=== PATIENT | female | born 1960 ===

== ENCOUNTER 2024-10-13 16:16 | Outpatient (AMB) | payer MEDICAID, SELFPAY ==
--- OUTSIDE RECORDS SUMMARY | 2024-10-13 16:18 | XMS_ITS | Clinical Summary ---
Author Organization [facility] Address [address] [place] [address] Care Team Providers Care Anode Crew Supervisor Name Role Phone Dinah Parrish TRAVEL WRITER Primary Care Provider Family History Medical History Relation Name Comments Cancer Father LUNG/SMOKER Breast cancer Neg Hx Relation Name Status Comments Father LUNG/SMOKER Social History Tobacco Use Types Packs/Day Years Used Date Smoking Tobacco: Never Assessed Comments Unknown Sex and Gender Information Value Date Recorded Sex Assigned at Not on file Legal Sex Female 3:47 AM EST Gender Identity Not on file Sexual Orientation Not on file Obstetrics History Plan of Treatment Health Maintenance Due Date Last Done Comments DTaP,Tdap,and Td Vaccines (1 - Tdap) 1977 Cervical Cancer Screening: P ap Smear 11/30/1979 Pneumococcal Vaccine: 50+ Years (1 of 1 - PCV) 2008 Zoster Vaccines (1 of 2) 2008 Breast Cancer Screening 06/15/2021 06/15/19 20, 05/07/2018 COVID-19 Vaccine ( - 2023-2 5 season) 2024 Influenza Vaccine (Season Ended) 2025 RSV Immunization Adult Patients (1 - 1-dose 75+ series) 2033 HIB Vaccines Aged Out No longer eligi ble based on patient's age to complete this topic HPV Vaccines Aged Out No longer eligi ble based on patient's age to complete this topic Hepatitis A Vaccines Aged Out No long er eligible based on patient's age to complete this topic Hepatitis B Vaccines Aged Out No long er eligible based on patient's age to complete this topic IPV Vaccines Aged Out No longer eligi ble based on patient's age to complete this topic MMR Vaccines Aged Out No longer eligi ble based on patient's age to complete this topic Meningococcal ACWY Vaccine Aged Out N o longer eligible based on patient's age to complete this topic Meningococcal B Vaccine Aged Out No l onger eligible based on patient's age to complete this topic Pneumococcal Vaccine: Pediatrics (0 to 5 Years) and At-Risk Patients (6 to 64 Years) Aged Out No longer eligible b ased on patient's age to complete this topic RSV Immunization Patients Under 20 months Aged Out No longer eligible b ased on patient's age to complete this topic Varicella Vaccines Aged Out No longer eligible based on patient's age to complete this topic Procedures Procedure Name Priority Date/Time Associated Diagnosis Comments MAMMOGRAM SCREENING BILATERAL 3D LACY WITH CAD Routine 06/15/2019 4:20 PM EST Encounter for screening mammogram for malignant neoplasm of breast from Last 3 Months or Most Recently Relevant to Health Maintenance Results * MAMMOGRAM SCREENING BILATERAL 3D LACY WITH CAD (06/15/2019 4:20 PM EST) Anatomical Region Laterality Modality Mammography 06/13/2019 3:38 PM EST Narrative 06/16/2019 7:46 AM EST This is a summary report. The complete report is available in the patient's medical record. If you cannot access the medical record, please contact the sending organization for a detailed fax or copy. EXAM PERFORMED: ??MAMMOGRAM SCREENING BILATERAL 3D LACY WITH CAD EXAM HISTORY: Screening COMPARISON: 05/07/2018 TECHNIQUE: Bilateral full field digital mammography synthesized (2-D) and Tomosynthesis (3-D) was performed using standard CC and MLO projections. FINDINGS: There are no dominant mass lesions, skin thickening, or nipple retraction. No cluster of suspicious microcalcifications is seen. BREAST DENSITY: ??Scattered fibroglandular densities within the breast parenchyma (25-50% fibroglandular tissue: density B). ?? IMPRESSION: 1. ??No radiographic evidence of malignancy. Followup is recommended in one year. The results of this examination have been communicated to the patient through a lay letter in accordance with the Mammography Quality Standards Act. BI-RADS 2: Benign. Session: Examination and interpretation performed during a separate session. 3342 F Report reviewed and signed by : Dr. Eugene Sweet MD on 06/16/2019 7:46 AM. Workstation Name - [id number] Procedure Note Eugene Sweet MD - 05/25/2022 This is a summary report. The complete report is available in thepatient's medical record. If you cannot access the medical record, pleasecontact the sending organization for a detailed fax or copy. EXAM PERFORMED: MAMMOGRAM SCREENING BILATERAL 3D LACY WITH CAD EXAM HISTORY: Screening COMPARISON: 05/07/2018 TECHNIQUE: Bilateral full field digital mammography synthesized (2-D) andTomosynthesis (3-D) was performed using standard CC and MLO projections. FINDINGS: There are no dominant mass lesions, skin thickening, or nipple retraction.No cluster of suspicious microcalcifications is seen. BREAST DENSITY: Scattered fibroglandular densities within the breastparenchyma (25-50% fibroglandular tissue: density B). IMPRESSION: 1. No radiographic evidence of malignancy. Followup is recommended in oneyear. The results of this examination have been communicated to the patientthrough a lay letter in accordance with the Mammography Quality StandardsAct. BI-RADS 2: Benign. Session: Examination and interpretation performed during a separatesession. 3342 F Report reviewed and signed by : Dr. Eugene Sweet MD on 06/16/2019 7:46AM. Workstation Name - [id number] Dinah Parrish NP IMG BI PROCEDURES Final Res ult from Last 3 Months or Most Recently Relevant to Health Maintenance Care Teams Anode Crew Supervisor Relationship Specialty Start Date End Date Dinah Parrish NP [address] [address] PCP - General Internal Medicine 06/15/19
--- OUTSIDE RECORDS SUMMARY | 2024-10-13 16:18 | XMS_ITS | Clinical Summary ---
Author Organization [facility] Address [address] [place] [address] Care Team Providers Care Purchasing Agent Name Role Phone Provider, Octavio LOREDO Primary Care Provider Un available Social History Tobacco Use Types Packs/Day Years Used Date Smoking Tobacco: Never Assessed Comments Unknown Sex and Gender Information Value Date Recorded Sex Assigned at Not on file Legal Sex Female 5:25 PM EDT Gender Identity Not on file Sexual Orientation Not on file Plan of Treatment Health Maintenance Due Date Last Done Comments Hepatitis C Virus Screening 1958 HIV Screening 11/30/1971 DTaP/Tdap/Td Vaccines (1 - Tdap) 1977 Pneumococcal Vaccines 50+ (1 of 1 - PCV) 2008 Zoster (Shingles) Vaccine (1 of 2) 2008 COVID-19 Vaccine ( - 2023-2 5 season) 2024 RSV Vaccine 60 years and old er and Patients (1 - 1-dose 75+ series) 2033 Hepatitis B Vaccines Aged Out No long er eligible based on patient's age to complete this topic Care Teams Purchasing Agent Relationship Specialty Start Date End Date ProviderOctavio MD PCP - General 02/22/11
--- OUTSIDE RECORDS SUMMARY | 2024-10-13 16:18 | XMS_ITS | Clinical Summary ---
Author Organization [facility] Address [address] [place] [address] Care Team Providers Care Rack Puller Name Role Phone ParrishDinah pruitt Sdea TOLBERT Primary Care Provider [phone] Allergies Active Allergy Reactions Criticality Noted Date Comments Pravastatin Medium 10/28/2013 Other reaction(s): muscle pain Medications Medication Sig Dispensed Refills Start Date End Date Status rosuvastatin (CRESTOR) tablet 5 mg Take 10 mg by mouth every other day. 0 05/30/2019 Active Psyllium (HM FIBER) 28.3 % POWD Take by mouth. 0 02/16/2019 Active Multiple Vitamin (MULTIVITAMIN) tablet Take 2 tablets by mouth. 0 Active levothyroxine (SYNTHROID, LEVOXYL) tablet 50 mcg TAKE 1 TABLET (50MCG TOTAL) BY MOUTH DAILY BEFORE BREAKFAST 0 05/09/2019 Active Diclofenac Sodium 1 % GEL topical Apply 2 g topically. 0 08/04/2018 A ctive NASCOBAL 500 MCG/0.1ML SOLN ADMINISTER 1 SPRAY INTO AFFECTED NOSTRIL ONCE PER WEEK. 0 01/05/2020 Active calcium carbonate (OS-MARIELLE) 1250 (500 Ca) MG chewable tablet Chew 2 tablets by mouth. 0 Active atenolol (TENORMIN) tablet 25 mg TAKE 1/2 TABLET DAILY 0 08/15/2019 Active aspirin EC 81 MG tablet Take by mouth. 0 07/14/2014 Active Family History Medical History Relation Name Comments Cancer Father LUNG/SMOKER Breast cancer Neg Hx Relation Name Status Comments Father LUNG/SMOKER Social History Tobacco Use Types Packs/Day Years Used Date Smoking Tobacco: Never Assessed Sex and Gender Information Value Date Recorded Sex Assigned at Female 01/19/2020 5:16 AM EDT Gender Identity Not on file Sexual Orientation Not on file Last Filed Vital Signs Vital Sign Reading Time Taken Comments Blood Pressure 109/73 01/19/2020 3:32 AM EDT Pulse 63 01/19/2020 3:32 AM EDT Temperature 36.7 ??C (98 ??F) 01/19/2020 3:32 AM EDT Respiratory Rate 16 01/19/2020 3:32 AM EDT Oxygen Saturation 95% 01/19/2020 3:32 AM EDT Inhaled Oxygen Concentration - - Weight - - Height - - Body Mass Index - - Plan of Treatment Health Maintenance Due Date Last Done Comments Hepatitis C Screening 1958 COVID-19 Vaccine (#1) 06/01/1959 Depression Screening 1970 Preventative Health Evaluation 1976 DTap / Tdap / Td (1 - Tdap) 1977 Cervical Cancer Screening (Pap Smear) 11/30/1979 Colon Cancer Screening (Colonoscopy) 11/30/2003 Shingrix-Zoster Vaccine (1 of 2) 2008 Breast Cancer Screening (Mammogram) 06/15/2021 06/15/2019, 05/07/2018, 03/18/2017, Additional history exists Fall Risk Assessment 11/30/2023 Osteoporosis Screening (DEXA Scan) 11/30/2023 05/18/2018 Pneumococcal Vaccine (1 of 1 - PCV) 11/30/2023 Influenza Vaccine (#1) 2024 RSV Adult > 60+ Yrs or (1 - 1-dose 75+ series) 2033 Hepatitis B Vaccines Aged Out No long er eligible based on patient's age to complete this topic Pneumococcal Vaccine Aged Out No long er eligible based on patient's age to complete this topic RSV Ped < 20 months Aged Out No longe r eligible based on patient's age to complete this topic Care Teams Rack Puller Relationship Specialty Start Date End Date Dinah Parrish APRN [address] [place] [address] PCP - General Internal Medicine 06/15/19
--- OUTSIDE RECORDS SUMMARY | 2024-10-13 16:18 | XMS_ITS | Clinical Summary ---
Author Organization [facility] Address [address] [place] [address] Care Team Providers Care Logistic Specialist Name Role Phone ParrishDinah pruitt TOMASZ Primary Care Provider [phone] Allergies Active Allergy Reactions Criticality Noted Date Comments Pravastatin Medium 10/28/2013 Other reaction(s): muscle pain Medications aspirin 81 mg EC tablet Take by mouth every 12 hours. 5 Active calcium carbonate (OS-MARIELLE) 500 mg calcium (1,250 mg) chewable tablet Take 2 tablets by mouth daily. Active omega-3 fatty acids (FISH OIL) 500 mg capsule Take by mouth. 4 Active multivitamin (multivitamin) tablet Take 2 tablets by mouth daily. Active diclofenac sodium (VOLTAREN) 1 % gelIndications:Lum barometers calibrator pain,Strain of lumbar paraspinous muscle, sequela Apply 2 g topically 4 (four) times a day. 300 g 3 9 Active psyllium husk, with sugar, (FIBER, PSYLLIUM HUSK/SUGAR,) 3.4 gram/12 gram powderIndications: Generalized abdominal pain,LLQ pain,Constipation, unspecified constipation type Take 1 Dose by mouth 2 (two) times a day. 862 Bottle 1 9 Active cholecalciferol, vitamin D3, 2,000 unit tablet TAKE 1 TABET BY MOUTH DAILY(2000 UNITS) 200 tablet 9 Active rosuvastatin (CRESTOR) 5 mg tabletIndications: Mixed hyperlipidemia Take 2 tablets (10 mg total) by mouth every other day. 200 tablet 1 9 Active levothyroxine (SYNTHROID) 50 mcg tabletIndications: Acquired hypothyroidism TAKE 1 TABLET (50MCG TOTAL) BY MOUTH DAILY BEFORE BREAKFAST 90 tablet 0 Active alendronate (FOSAMAX) 70 mg tabletIndications: Osteopenia of lumbar spine TAKE 1 TABLET WEEKLY, IN MORNING WITH FULL GLASS OF WATER, EMPTY STOMACH, AND DO NOT TAKE ANYTHING OR LIE DOWN FOR THE NEXT 30 MINUTES 12 tablet 0 Active atenoloL (TENORMIN) 25 mg tabletIndications: Essential hypertension TAKE ONE-HALF TABLET BY MOUTH EVERY DAY 90 tablet 1 Active Active Problems Problem Noted Date Diagnosed Date Slow transit constipation 06/14/2019 Assessment & Plan (06/14/2019 9:01 AM EST): Pt encouraged to add a daily fiber supplement such as benefiber or metamucil. Encouraged to use miralax as needed. Dietary handouts given NADJA (generalized anxiety disorder) 08/11/2018 Assessment & Plan (08/11/2018 5:23 PM EDT): Psychological condition is worsening. Regular aerobic exercise. Medication changes per orders. [place] see Psych or Psychology at this time. Will f/u with me when she returns Psychological condition will be reassessed at the next regular appointment. Medication management 08/11/2018 Assessment & Plan (06/14/2019 9:01 AM EST): Refills ordered today Assessment & Plan (08/11/2018 5:24 PM EDT): Medications refilled for her, so she can take with her to [place]. Trigeminal neuralgia 05/07/2018 Assessment & Plan (05/07/2018 8:10 AM EST): I have ordered Tegretol ER 100 to be taken at night for the nerve pain. I would like her to try this and if it doesn't work well I will send her to neurology. Typically, [place] Palsy nerve pain resolves with time. 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 Encouraged her to continue on CA+ Vitamin D supplements Hypothyroidism 12/07/2015 Disorder of bone and articular cartilage 015 Obesity 2014 Assessment & Plan (05/07/2018 8:12 AM EST): Obesity is unchanged. She continues with a balanced diet and is trying to cut down on portions size General weight loss/lifestyle modification strategies discussed (elicit support from others; identify saboteurs; non-food rewards, etc). Osteoarthritis 07/18/2014 Assessment & Plan (06/14/2019 9:03 AM EST): Encouraged to use Motrin or tylenol for comfort. Pt does not wish to participate in PT at this time. Vitamin D deficiency 07/14/2014 Depressive disorder 04/01/2014 Assessment & Plan (05/07/2018 8:15 AM EST): Psychological condition is improving with lifestyle modifications. Continue current treatment regimen. Regular aerobic exercise. Psychological condition will be reassessed at the next regular appointment.Since her son is doing better with his life she feels she is not depressed any more. Hyperlipidemia 04/01/2014 Assessment & Plan (05/07/2018 8:14 AM EST): Lipid abnormalities are improving with treatment. Nutritional counseling was provided. Lipids will be reassessed in 6 months.Labs reviewed with patient and I encouraged her to continue current dose of Crestor daily Hypertensive disorder 04/01/2014 Assessment & Plan (08/11/2018 5:25 PM EDT): Hypertension is improving with treatment. Continue current treatment regimen. Dietary sodium restriction. Weight loss. Regular aerobic exercise. Continue current medications. Blood pressure will be reassessed at the next regular appointment. Continue on Atenolol 12.5mg daily- decreased in April 2018 Assessment & Plan (05/07/2018 8:11 AM EST): Hypertension is improving with treatment. Dietary sodium restriction. Weight loss. Regular aerobic exercise. Continue current medications. Medication changes per orders. Ambulatory blood pressure monitoring. Blood pressure will be reassessed at the next regular appointment. Atenolol was cut in half to 12.5mg daily Obstructive sleep apnea syndrome 04/01/2014 Assessment & Plan (05/07/2018 8:11 AM EST): Resolved after Gastric Bypass and weight loss Resolved Problems Problem Noted Date Diagnosed Date Resolved Date Stress at home 08/04/2018 05/30/2019 Social History Tobacco Use Types Packs/Day Years Used Date Smoking Tobacco: Never Smokeless Tobacco: Never Alcohol Use Standard Drinks/Week Comments No 0 (1 standard drink = 0.6 oz pur e alcohol) Comments Unknown Sex and Gender Information Value Date Recorded Sex Assigned at Not on file Legal Sex Female 11:34 AM EST Gender Identity Not on file Sexual Orientation Not on file Last Filed Vital Signs Vital Sign Reading Time Taken Comments Blood Pressure 96/62 06/29/2019 2:55 PM EST Pulse 73 06/29/2019 2:55 PM EST Temperature 36.6 ??C (97.9 ??F) 02/16/2019 3:21 PM ED T Respiratory Rate - - Oxygen Saturation 98% 05/30/2019 3:19 PM EST RA Inhaled Oxygen Concentration - - Weight 85.7 kg (188 lb 14.4 oz) 06/29/2019 2:55 PM EST Height 157.5 cm (5' 2 ) 06/29/2019 2:55 PM EST Body Mass Index 34.55 06/29/2019 2:55 PM EST Plan of Treatment Health Maintenance Due Date Last Done Comments Bone Density Screening 1958 Breast Cancer Screening 1958 CT Colonography 1958 FIT-DNA (Cologuard) 1958 FIT 1958 FOBT 1958 Flex Sigmoidoscopy - 5y 1958 HIV Screening 1958 Pap Smear 11/30/1979 Cervical Cancer Screening 1988 HPV/Cotest 1988 Pneumococcal Vaccine, 50+ Years (1 of 1 - PCV) 2008 Zoster Vaccines (1 of 2) 2008 DTaP,Tdap,and Td Vaccines (1 - Tdap) 11/30/2014 2014 Colonoscopy 12/23/2023 12/22/2013 (Done (Data in HDA)) Colorectal Cancer Screening 12/23/2023 COVID-19 Vaccine (1 - 2023-2 5 season) 2024 Influenza Vaccine (Season Ended) 2025 HPV Vaccines Aged Out No longer eligi ble based on patient's age to complete this topic Hepatitis A Vaccines Aged Out No long er eligible based on patient's age to complete this topic MMR Vaccines Aged Out No longer eligi ble based on patient's age to complete this topic Meningococcal Vaccine Aged Out No jennifer marlin eligible based on patient's age to complete this topic [facility] Care Teams Logistic Specialist Relationship Specialty Start Date End Date Dinah Parrish APRN [facility] [address] [place] [id number] PCP - General Internal Medicine 04/08/18
[2024-10-13 16:32] VITALS: BP 112/72; PULSE 62; RESP 18; TEMP 36.3; O2SAT 94; BMI 35.0
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
== END 2024-10-13 17:44 | disposition home or self-care (01) ==
LOC: HO.HMCH 16:17
DX: I10 Essential (primary) hypertension (principal); E89.0 Postprocedural hypothyroidism; F32.A Depression, unspecified; M81.0 Age-related osteoporosis without current pathological fracture; R73.03 Prediabetes; M25.551 Pain in right hip; M25.561 Pain in right knee; M25.562 Pain in left knee; G89.29 Other chronic pain; R68.89 Other general symptoms and signs

== ENCOUNTER → 2024-10-13 16:16 | Outpatient (BNVA) | payer MEDICAID, SELFPAY | DX: I10 Essential (primary) hypertension (principal); E78.5 Hyperlipidemia, unspecified; E03.9 Hypothyroidism, unspecified; F32.A Depression, unspecified; M81.0 Age-related osteoporosis without current pathological fracture; G47.33 Obstructive sleep apnea (adult) (pediatric); R73.03 Prediabetes; M25.551 Pain in right hip; M25.561 Pain in right knee; M25.562 Pain in left knee; G89.29 Other chronic pain; R68.89 Other general symptoms and signs | CPT/HCPCS: 96127; 99202 ==